=== PATIENT | female | born 1980 | race Caucasian/White ===

== ENCOUNTER 2017-10-28 13:05 | Emergency (ER) | payer OTHER ==
--- NOTE | 2017-10-28 13:27 | EDPHY ---
H & P Stated Complaint: L rib, L mid back pain since today. SOB x 11 days. Denies chest pain Time Seen by Provider: 10/28/17 13:15 HPI/ROS: CHIEF COMPLAINT: Left-sided epigastric pain HISTORY OF PRESENT ILLNESS: The patient is a 37-year-old healthy female who complains of mild dyspnea on exertion over the last month. She presented to the urgent care 10 days ago and had negative EKG and was released. Over last 24 hr she has also developed some pleuritic pain in her epigastrium that radiates to her left upper back. No lower abdominal pain or CVA pain. She is just finishing her period today. She does have a nuva ring in place. She also had a dental procedure done about 2 weeks ago and is just finishing amoxicillin. No coughs or fevers. She does not feel short of breath at rest. No urinary symptoms. No vomiting or diarrhea. She tried to make a doctor's appointment today and the nurse told her to come to the ER to get ruled out for PE. No leg pain or swelling. She does travel extensively but has not traveled in about 3 weeks. She also does suffer from GERD but does not like taking an acids. She feels that she gets better relief with bone broth. Severity: Mild Modifying factors: Exertion REVIEW OF SYSTEMS: Constitutional: denies: chills, fever, recent illness, recent injury EENTM: denies: blurred vision, double vision, nose congestion Respiratory: denies: cough, shortness of breath Cardiac: denies: chest pain, irregular heart rate, lightheadedness, palpitations Gastrointestinal/Abdominal: denies: abdominal pain, diarrhea, nausea, vomiting, blood streaked stools Genitourinary: denies: dysuria, frequency, hematuria, pain Musculoskeletal: denies: joint pain, muscle pain Skin: denies: lesions, rash, jaundice, bruising Neurological: denies: headache, numbness, paresthesia, tingling, dizziness, weakness Hematologic/Lymphatic: denies: blood clots, easy bleeding, easy bruising Immunologic/allergic: denies: HIV/AIDS, transplant 10 systems reviewed and negative except as noted EXAM: GENERAL: Well-appearing, well-nourished and in no acute distress. HEAD: Atraumatic, normocephalic. EYES: Pupils equal round and reactive to light, extraocular movements intact, sclera anicteric, conjunctiva are normal. ENT: TMs normal, nares patent, oropharynx clear without exudates. Moist mucous membranes. NECK: Normal range of motion, supple without lymphadenopathy or JVD. LUNGS: Breath sounds clear to auscultation bilaterally and equal. No wheezes rales or rhonchi. HEART: Regular rate and rhythm without murmurs, rubs or gallops. ABDOMEN: Soft, nontender, normoactive bowel sounds. No guarding, no rebound. No masses appreciated. BACK: No CVA tenderness, no spinal tenderness, step-offs or deformities EXTREMITIES: Normal range of motion, no pitting or edema. No clubbing or cyanosis. NEUROLOGICAL: Cranial nerves II through XII grossly intact. Normal speech, normal gait. 5/5 strength, normal movement in all extremities, normal sensation , normal reflexes PSYCH: Normal mood, normal affect. SKIN: Warm, dry, normal turgor, no visible rashes or lesions. Source: Patient Exam Limitations: No limitations - Personal History LMP (Females 10-55): Now Current Tetanus Diphtheria and Acellular Pertussis (TDAP): Yes Tetanus Vaccine Date: within 10 years - Medical/Surgical History Hx Asthma: No Hx Chronic Respiratory Disease: No Hx Diabetes: No Hx Cardiac Disease: No Hx Renal Disease: No Hx Cirrhosis: No Hx Alcoholism: No Hx HIV/AIDS: No Hx Splenectomy or Spleen Trauma: No Other PMH: Breast reduction, GERD, and celiac dx - Family History Significant Family History: No pertinent family hx - Social History Smoking Status: Never smoked Alcohol Use: Sober Drug Use: None Constitutional: Initial Vital Signs Temperature (C) 36.9 C 10/28/17 13:12 Heart Rate 75 10/28/17 13:12 Respiratory Rate 16 10/28/17 13:12 Blood Pressure 159/65 H 10/28/17 13:12 O2 Sat (%) 96 10/28/17 13:12 O2 Delivery Mode Room Air Allergies/Adverse Reactions: No Known Allergies Allergy (Verified 10/28/17 13:12) Home Medications: Medication Instructions Recorded NK [No Known Home Meds] 10/28/17 Medical Decision Making - Diagnostics EKG Interpretation: An EKG obtained and was read and documented in trace view. Please see trace view for full reading and report. Sinus rhythm, no acute ischemic changes Imaging: Discussed imaging studies w/ building admin Radiologist ED Course/Re-evaluation: We discussed the imaging and lab results and EKG which are all very reassuring. The patient feels reassured. She is currently asymptomatic. We discussed continued treatment including anti-inflammatories versus and acids. We agreed to try anti-inflammatories 1st and may need to be switched ant acids if that is not improving after weak. We also discussed indications for returning to the emergency department. She has been prescribed an acids before but does not regularly take them. Differential Diagnosis: Partial list of the Differential diagnosis considered include but were not limited to; pleurisy, PE, GERD and although unlikely based on the history and physical exam, I also considered pneumothorax, acute coronary disease, dissection, aneurysm, pneumonia. I discussed these differential diagnoses and the plan with the patient as well as the usual and expected course. The patient understands that the diagnosis is provisional and that in medicine we are not always correct and that further workup is often warranted. Usual and customary warnings were given. All of the patient's questions were answered. The patient was instructed to return to the emergency department should the symptoms at all worsen or return, otherwise to followup with the physician as we discussed. - Data Points Laboratory Results: Laboratory Results 10/28/17 13:48 Point of Care Test Results: Chemistry 10/28/17 10/28/17 13:52 13:39 POC Sodium 138 mEq/L mEq/L (135-145) POC Potassium 3.7 mEq/L mEq/L (3.3-5.0) POC Chloride 104.0 mEq/L mEq/L (97-110) POC Total CO2 25 mEq/L mEq/L (22-31) POC BUN 7 mg/dL mg/dL (7-23) POC Creatinine 0.8 mg/dL mg/dL (0.6-1.0) POC Glucose 95 mg/dL mg/dL (70-100) POC Calcium 10.0 mg/dL mg/dL (8.5-10.4) POC Total Bilirubin 1.0 mg/dL mg/dL (0.1-1.4) POC AST 28 IU/L IU/L (14-46) POC ALT 32 IU/L IU/L (9-52) POC Alk Phosphatase 61 IU/L IU/L (38-126) POC Troponin I 0.00 ng/mL ng/mL (0.00-0.08) POC Total Protein 8.2 g/dL g/dL (6.3-8.2) POC Albumin 4.6 g/dL g/dL (3.5-5.0) Comprehensive Metabolic Panel CMP Collection Date 10/28/17 CMP Collection Time 13:30 D-Dimer D-Dimer Collection Date 10/28/17 D-Dimer Collection Time 13:30 D-Dimer (ng/ml) <100 ng/ml Departure - Departure Disposition: Home, Routine, Self-Care Clinical Impression: Pleurisy Condition: Fair Instructions: Pleurisy (DC) Referrals: Dixie Conrad MD [Primary Care Provider] - 3-4 days, if not improved
--- NOTE | 2017-10-28 13:53 | CPEKG ---
Test Reason : OPEN Blood Pressure : / mmHG Vent. Rate : 064 BPM Atrial Rate : 064 BPM P-R Int : 158 ms QRS Dur : 091 ms QT Int : 436 ms P-R-T Axes : 067 060 048 degrees QTc Int : 450 ms Sinus rhythm Confirmed by Chris Morales ([id number]) on 10/28/2017 1:52:33 PM Referred By: Confirmed By:Chris Morales
[2017-10-28 15:03] LABS: PLATELET COUNT 324 10^3/uL (150-400)
[2017-10-28 15:07] VITALS: BP 116/75
== END 2017-10-28 14:56 | disposition home or self-care (01) ==
LOC: CED 13:05
DX: R09.1 Pleurisy (principal)
CPT/HCPCS: 71046-PO; 80053-PO; 84484-PO

== ENCOUNTER 2017-11-02 19:14 | Emergency (ER) | payer OTHER ==
[2017-11-02] MEDS ORDERED: MAG HYDROX/AL HYDROX/SIMETH 30 ML UDCUP PO ONE (19:51)
[2017-11-02] MEDS ORDERED: LIDOCAINE 2% VISCOUS 15 ML UDCUP PO ONE (19:51)
[2017-11-02] MEDS ORDERED: HYOSCYAMINE SULFATE 0.125 MG TAB PO ONE (19:51)
--- NOTE | 2017-11-02 20:01 | EDPHY ---
H & P Time Seen by Provider: 11/02/17 19:24 HPI/ROS: CHIEF COMPLAINT: Left-sided chest pain HISTORY OF PRESENT ILLNESS: Patient was seen here on October 28 for the same symptoms. At that time she had had some mild shortness of breath on exertion over the past 2 weeks but that has since resolved. She had chest x- ray and EKG and troponin which were negative. LFTs were negative. She felt better for couple of days and then over the last 48 hr symptoms have reoccurred. She notes sharp pain in the left side under her breast radiating a little bit to her back. It is a little bit worse with deep breath but she was able to do her cardio exercise class today and did not feel short of breath or noticed decreased exercise tolerance. For the previous visit she did not notice any change with eating or drinking, although yesterday evening and then today at lunch see did feel worse after having a meal. She is having a little bit more belching and burping than usual from her known GERD. She does not have cough or hemoptysis, leg swelling, recent injury or trauma. No palpitations or syncope. REVIEW OF SYSTEMS: Eye: no change in vision ENT: no sore throat Cardiac: HPI Pulmonary: HPI Abdomen: No pain in her abdomen, no vomiting Musculoskeletal: No leg swelling Skin: Patient developed a diffuse rash about a day ago on both sides of her back which is scattered small red dots Neuro: no headache Constitutional: no fever : no urinary symptoms No recent fall injury or trauma. No recent history of sore throat. A comprehensive 10 point review of systems is otherwise negative aside from elements mentioned in the history of present illness. PAST MEDICAL HISTORY: Includes GERD, breast reduction, celiac disease. Family history: Negative for DVT or PE, negative for cardiac disease at her age. Social history: Nonsmoker General Appearance: Alert and conversant, cooperative. Eyes: No scleral icterus. ENT, Mouth: Normal mucous membranes. Respiratory: Speaks in full sentences, breath sounds equal, lungs are clear to auscultation. No crepitus. Cardiovascular: Regular rate and rhythm. Gastrointestinal: Abdomen is soft and non tender. Specifically no epigastric or right upper quadrant tenderness and no Young sign. Nontender over the spleen. Neurological: Alert, face symmetric, normal motor and sensory in extremities. Skin: Very scattered faint 1 mm red rash on both sides of her back but nothing at the area of pain, no vesicles. Musculoskeletal: No peripheral edema. No calf tenderness. Psychiatric: Not agitated. Emergency Department course/MDM: GI cocktail and D-dimer ordered. Pretest likelihood of pulmonary embolism clinically would be low. 2014: No significant change in symptoms with the GI cocktail, pleurisy would be much more likely than reflux. 2039: d-dimer <100, ibuprofen 600 and to go pack of [place]. I think inflammatory is much more likely than emergent medical or surgical condition. Previous emergency department visit diagnostics and history reviewed with the patient. Smoking Status: Never smoked Constitutional: Initial Vital Signs Temperature (C) 36.9 C 11/02/17 19:21 Heart Rate 71 11/02/17 19:21 Respiratory Rate 16 11/02/17 19:21 Blood Pressure 131/99 H 11/02/17 19:21 O2 Sat (%) 97 11/02/17 19:21 O2 Delivery Mode Room Air Allergies/Adverse Reactions: No Known Allergies Allergy (Verified 10/28/17 13:12) Home Medications: Medication Instructions Recorded NK [No Known Home Meds] 10/28/17 Medical Decision Making - Diagnostics EKG Interpretation: 12-lead EKG interpreted by me; official reading is in computer system. My interpretation is normal sinus rhythm, no ischemic changes. Differential Diagnosis: Differential diagnosis considered for chest pain including but not limited to zoster, pancreatitis, gallbladder disease, splenic injury or rupture, myocardial ischemia, aortic dissection, pericarditis, pulmonary embolus, chest wall pain, pleural inflammation and pulmonary infectious causes. - Data Points Medications Given: Discontinued Medications Hydrocodone Bitart/Acetaminophen ([place] 5/325mg Prepack#6) 1 btl TAKEHOME EDNOW ONE Stop: 11/02/17 20:45 Last Admin: 11/02/17 20:52 Dose: 1 btl Al Hydroxide/Mg Hydroxide (Maalox Susp) 30 ml PO ONCE ONE Stop: 11/02/17 19:52 Last Admin: 11/02/17 19:57 Dose: 30 ml Hyoscyamine Sulfate (Levsin, Hyomax-Sl) 0.25 mg PO ONCE ONE Stop: 11/02/17 19:52 Last Admin: 11/02/17 19:57 Dose: 0.25 mg Ibuprofen (Motrin) 600 mg PO EDNOW ONE Stop: 09/18/18 20:45 Last Admin: 11/02/17 20:52 Dose: 600 mg Lidocaine (Lidocaine 2% Viscous) 15 ml PO ONCE ONE Stop: 11/02/17 19:52 Last Admin: 11/02/17 19:57 Dose: 15 ml Point of Care Test Results: D-Dimer D-Dimer Collection Date 11/02/17 D-Dimer Collection Time 19:58 D-Dimer (ng/ml) <100 Departure - Departure Disposition: Home, Routine, Self-Care Clinical Impression: Chest pain Qualifiers: Chest pain type: unspecified Qualified Code(s): R07.9 - Chest pain, unspecified Condition: Good Instructions: Hydrocodone/Acetaminophen (By mouth), Chest Pain (ED), Pleurisy ( ED) Additional Instructions: Negative d-dimer test (blood clot unlikely). Ibuprofen 600mg by mouth every 8 hours for next 3 days. Please see your PCP in followup in the office this week. Referrals: Dixie Conrad MD [Primary Care Provider] - As per Instructions
--- NOTE | 2017-11-02 20:39 | CPEKG ---
Test Reason : OPEN Blood Pressure : / mmHG Vent. Rate : 068 BPM Atrial Rate : 068 BPM P-R Int : 177 ms QRS Dur : 093 ms QT Int : 437 ms P-R-T Axes : -37 063 047 degrees QTc Int : 465 ms Sinus rhythm Confirmed by Adan Kunz ([id number]) on 11/02/2017 8:38:47 PM Referred By: Confirmed By:Adan Kunz
[2017-11-02] MEDS ORDERED: IBUPROFEN 600 MG TAB PO ONE (20:44)
[2017-11-02] MEDS ORDERED: HYDROCOD/APAP 5/325 PREPACK#6 BTL TAKEHOME ONE (20:44)
[2017-11-02 20:57] VITALS: BP 127/80
== END 2017-11-02 20:57 | disposition home or self-care (01) ==
LOC: CED 19:14
DX: R07.9 Chest pain, unspecified (principal)

== ENCOUNTER → 2018-05-27 | Outpatient (CLI) | payer BC | LOC: FIMAGING 07:36 | PROVIDERS: ATTEND Family Medicine | DX: Z12.31 Encounter for screening mammogram for malignant neoplasm of breast (principal); N60.01 Solitary cyst of right breast; N60.02 Solitary cyst of left breast; Z98.890 Other specified postprocedural states ==

== ENCOUNTER → 2018-06-15 | Outpatient (CLI) | payer BC | LOC: FIMAGING 13:04 | PROVIDERS: ATTEND Family Medicine | DX: N60.02 Solitary cyst of left breast (principal); R92.8 Other abnormal and inconclusive findings on diagnostic imaging of breast ==